=== PATIENT | female | born 1950 | race Caucasian/White ===

== ENCOUNTER 2020-07-27 04:14 | Inpatient (IN) | payer MEDICARE, OTHER ==
[~2020-07-27] VITALS: Ht 162.6 cm; Wt 63.5 kg
[~2020-07-27 04:14] MED LIST: ENULOSE10 GM/15 M PO; ZOFRAN ODT 4 MG4 MG SL
[2020-07-27 04:53] LABS: HEMOGLOBIN 13.7 gm/dl (12.3-15.3); RED BLOOD COUNT 4.18 M/UL (4.00-5.10); WHITE BLOOD COUNT 8.8 K/UL (4.5-11.0)
[2020-07-27 05:32] LABS: BUN/CREATININE RATIO 18 (0-10)
--- NOTE | 2020-07-27 08:51 | NUR ---
CHICHO NARAYANAN HERE, AWARE OF CARDIOLOGY CONSULT.
[2020-07-27] MEDS ORDERED: LINZESS290 MCG PO (12:48)
[2020-07-27] MEDS ORDERED: LOPRESSOR 25 MG25 MG PO ×2 (12:50→13:24)
[2020-07-27] MEDS ORDERED: ALDACTONE 25MG25 MG PO (12:50)
[2020-07-27] MEDS ORDERED: DULOXETINE HCL30 MG PO (12:52)
[2020-07-27] MEDS ORDERED: CRESTOR40 MG PO (12:52)
[2020-07-27] MEDS ORDERED: CLONAZEPAM1 MG PO (12:56)
[2020-07-27] MEDS ORDERED: LEVOTHYROXINE50 MCG PO (12:57)
[2020-07-27] MEDS ORDERED: IBUPROFEN200 MG PO (13:01)
[2020-07-27] MEDS ORDERED: VITAMIN D325 MC6 PO (13:03)
[2020-07-27] MEDS ORDERED: PROBIOTIC1 EAC1 PO (13:03)
[2020-07-27] MEDS ORDERED: ASPIRIN EC81 MG PO (13:24)
[2020-07-27] MEDS ORDERED: ATORVASTATIN CA20 MG PO (13:24)
== END 2020-07-27 12:58 | disposition short-term general hospital (02) | DRG 281 ==
LOC: ER1 04:14 → CDU 07:25 → PROG CARE 07:25
PROVIDERS: Emergency Medicine; ADMIT Family Medicine
PROC: 4A023N7 Measurement of Cardiac Sampling and Pressure, Left Heart, Percutaneous Approach (ICD-10-PCS; principal; 2020-07-27)
PROC: B2111ZZ Fluoroscopy of Multiple Coronary Arteries using Low Osmolar Contrast (ICD-10-PCS; 2020-07-27)
PROC: B2151ZZ Fluoroscopy of Left Heart using Low Osmolar Contrast (ICD-10-PCS; 2020-07-27)
PROC: B2181ZZ Fluoroscopy of Left Internal Mammary Bypass Graft using Low Osmolar Contrast (ICD-10-PCS; 2020-07-27)
PROC: 4A033BC Measurement of Arterial Pressure, Coronary, Percutaneous Approach (ICD-10-PCS; 2020-07-27)
DX: I21.4 Non-ST elevation (NSTEMI) myocardial infarction (principal); T82.898A Other specified complication of vascular prosthetic devices, implants and grafts, initial encounter; E03.9 Hypothyroidism, unspecified; Z20.828 Contact with and (suspected) exposure to other viral communicable diseases; I25.110 Atherosclerotic heart disease of native coronary artery with unstable angina pectoris; E78.5 Hyperlipidemia, unspecified; K58.9 Irritable bowel syndrome, unspecified; R00.1 Bradycardia, unspecified; I10 Essential (primary) hypertension; Z95.1 Presence of aortocoronary bypass graft; Z90.710 Acquired absence of both cervix and uterus; Z91.040 Latex allergy status; Z98.84 Bariatric surgery status; Z82.49 Family history of ischemic heart disease and other diseases of the circulatory system; Z79.82 Long term (current) use of aspirin; Z79.890 Hormone replacement therapy; Z79.899 Other long term (current) drug therapy
CPT/HCPCS: 71045; 80053; 82550; 82553; 82962; 83690; 83735; 83874; 84484; 85025; 85379; 85610; 85730; 93005; 96365; 96366; 96375; 96376; 99152; 99153; 99285; C1769; J1644; J2250; J2270; J2405; J3010; J7040; Q9967; U0002

== ENCOUNTER 2020-08-02 13:13 | Observation (INO) | payer MEDICARE, OTHER ==
[~2020-08-02] VITALS: Ht 162.6 cm; Wt 61.2 kg
[~2020-08-02 13:13] MED LIST changes: +ALDACTONE 25MG25 MG PO; +ASPIRIN EC81 MG PO; +ATORVASTATIN CA20 MG PO; +CLONAZEPAM1 MG PO; +CRESTOR40 MG PO; +DULOXETINE HCL30 MG PO; +IBUPROFEN200 MG PO; +LEVOTHYROXINE50 MCG PO; +LINZESS290 MCG PO; +LOPRESSOR 25 MG25 MG PO; +PROBIOTIC1 EAC1 PO; +VITAMIN D325 MC6 PO
[2020-08-02 13:51] LABS: HEMOGLOBIN 13.9 gm/dl (12.3-15.3); RED BLOOD COUNT 4.23 M/UL (4.00-5.10); WHITE BLOOD COUNT 7.8 K/UL (4.5-11.0)
[2020-08-02] MEDS ORDERED: BRILINTA90 MG PO (18:43)
[2020-08-02] MEDS ORDERED: CONTRAVE ER 8-1 EACH PO (18:45)
[2020-08-03 03:20] LABS: WHITE BLOOD COUNT 7.4 K/UL (4.5-11.0)
[2020-08-03 03:21] LABS: RED BLOOD COUNT 3.68 M/UL (4.00-5.10)
[2020-08-03 03:54] LABS: BUN/CREATININE RATIO 26 (0-10)
[2020-08-04 04:22] LABS: BUN/CREATININE RATIO 23 (0-10)
== END 2020-08-04 12:26 | disposition short-term general hospital (02) ==
LOC: ER1 13:13 → M/S 16:20 → CDU 16:20 → M/S 19:42
PROVIDERS: Nurse Practitioner; Physician Assistant; Radiology Diagnostic Radiology; ADMIT Internal Medicine
DX: I25.119 Atherosclerotic heart disease of native coronary artery with unspecified angina pectoris (principal); I10 Essential (primary) hypertension; E78.5 Hyperlipidemia, unspecified; E03.9 Hypothyroidism, unspecified; F41.9 Anxiety disorder, unspecified; K58.9 Irritable bowel syndrome, unspecified; R00.1 Bradycardia, unspecified; I25.5 Ischemic cardiomyopathy; I45.10 Unspecified right bundle-branch block; I25.2 Old myocardial infarction; Z87.891 Personal history of nicotine dependence; Z95.5 Presence of coronary angioplasty implant and graft; Z20.822 Contact with and (suspected) exposure to COVID-19; Z98.84 Bariatric surgery status; Z90.710 Acquired absence of both cervix and uterus; Z91.040 Latex allergy status; Z79.82 Long term (current) use of aspirin; Z79.899 Other long term (current) drug therapy
CPT/HCPCS: ECHO; 36415; 71045; 80048; 80053; 82550; 82553; 83735; 83874; 83880; 84100; 84484; 85025; 85610; 85730; 93005; 93306; 94664; 94760; 96374; 96375; 96376; 99285; G0378; J1644; J2060; J2405; U0002

== ENCOUNTER → 2020-10-27 | Outpatient (CLI) | payer MEDICARE, OTHER ==
[~2020-10-27] MED LIST changes: +BRILINTA90 MG PO; +CONTRAVE ER 8-1 EACH PO
== END ==
LOC: KOH-I 13:15
DX: N18.30 Chronic kidney disease, stage 3 unspecified (principal); N20.0 Calculus of kidney
CPT/HCPCS: 76775